=== PATIENT | female | born 1985 | race Hispanic/Latino ===

== ENCOUNTER 2021-04-04 20:51 | Emergency (ER) | payer MEDICAID, OTHER ==
[~2021-04-04] VITALS: Ht 170.2 cm; Wt 106.6 kg
[2021-04-04 20:57] VITALS: BP 105/66
[2021-04-04] MEDS: 0.9%NACL 1000ML 1,000 ML IV ONE (21:31)
[2021-04-04] MEDS: INSULIN HUMULIN R 100 UNIT/ML 3ML SQ ONE (21:31)
[2021-04-04 21:35] LABS: BASOPHILS % (AUTO) 0.3 % (0.0-5.0); EOSINOPHILS % (AUTO) 2.3 % (0.0-8.0); HEMATOCRIT 42.3 % (36-48); LYMPHOCYTES % (AUTO) 24.8 % (21.0-51.0); MEAN CORPUSCULAR HEMOGLOBIN 31.5 pg (27.0-33.0); MEAN CORPUSCULAR HGB CONC 34.5 g/dL (32.0-36.0); MEAN CORPUSCULAR VOLUME 91.2 fL (79-99); MONOCYTES % (AUTO) 6.5 % (3.0-13.0); NEUTROPHILS % (AUTO) 65.7 % (40.0-77.0); PLATELET COUNT (AUTO) 260 K/uL (130-400); RED BLOOD CELL COUNT(AUTO) 4.64 MIL/uL (4.00-5.50); RED CELL DISTRIBUTION WIDTH 11.9 % (11.0-15.5); WHITE BLOOD COUNT (AUTO) 11.6 K/uL (4.8-10.8)
[2021-04-04 21:37] LABS: APPEARANCE,URINE Clear (CLEAR); BILIRUBIN,URINE Negative (NEGATIVE); COLOR,URINE Yellow (YELLOW); GLUCOSE, URINE (UA) >=1000 mg/dL (NEGATIVE); KETONES,URINE Negative (NEGATIVE); LEUKOCYTE ESTERASE ,URINE Negative (NEGATIVE); NITRATE,URINE Negative (NEGATIVE); OCCULT BLOOD,URINE Negative (NEGATIVE); PH,URINE 5.5 (5.0-8.0); PROTEIN,URINE Negative (NEGATIVE); UROBILINOGEN,URINE 0.2 mg/dL (0.2-1.0)
[2021-04-04 21:41] VITALS: BP 97/65
[2021-04-04 21:42] LABS: HCG,QUAL RESULT NEGATIVE (NEGATIVE)
[2021-04-04 21:44] LABS: BACTERIA,URINE Rare /HPF (None Seen); RBC,URINE 0-1 /HPF (0-1); SQUAMOUS EPITHELIAL CELL,UR Few /HPF (0-2); WBC,URINE 0-1 /HPF (0-1)
[2021-04-04 21:49] LABS: ALBUMIN 2.7 g/dL (3.5-5.0); BILIRUBIN,TOTAL 0.2 mg/dL (0.2-1.0); CREATININE 0.8 mg/dL (0.5-1.5); POTASSIUM 4.4 mmol/L (3.5-5.1); TOTAL PROTEIN, SERUM 6.5 g/dL (6.0-8.3)
[2021-04-04] MEDS ORDERED: METF-444 PO (23:08)
[2021-04-04 23:58] VITALS: BP 110/70
== END 2021-04-05 00:18 | disposition home or self-care (01) ==
LOC: EDH 20:51
DX: E11.65 Type 2 diabetes mellitus with hyperglycemia (principal); E66.9 Obesity, unspecified; R42 Dizziness and giddiness; R03.0 Elevated blood-pressure reading, without diagnosis of hypertension; Z79.4 Long term (current) use of insulin; Z68.36 Body mass index [BMI] 36.0-36.9, adult
CPT/HCPCS: 36415; 80053; 81001; 81025; 82010; 82948 ×2; 85025; 96360; 96361; 96372; 99283; J1815; J7030

== ENCOUNTER 2021-07-30 10:53 | Emergency (ER) | payer MEDICAID, OTHER ==
[~2021-07-30] VITALS: Ht 170.2 cm; Wt 108.9 kg
[~2021-07-30 10:53] MED LIST: METF-444 PO
[2021-07-30 10:54] VITALS: BP 158/96
[2021-07-30] MEDS ORDERED: OSEL75 PO (12:10)
[2021-07-30] MEDS ORDERED: D-ME1POW16 PO (12:10)
[2021-07-30] MEDS ORDERED: GUAIFENESIN-CODEINE 5 ML SYRUP PO ONE (12:30)
[2021-07-30] MEDS ORDERED: OSELTAMIVIR PHOSPHATE 75 MG CAP PO SCH (12:30)
[2021-07-30] MEDS ORDERED: IVER3TAB PO (13:12)
== END 2021-07-30 13:54 | disposition home or self-care (01) ==
LOC: EDH 10:53
DX: U07.1 COVID-19 (principal); J10.1 Influenza due to other identified influenza virus with other respiratory manifestations; E78.00 Pure hypercholesterolemia, unspecified; E66.9 Obesity, unspecified; E11.9 Type 2 diabetes mellitus without complications; Z79.84 Long term (current) use of oral hypoglycemic drugs; Z68.37 Body mass index [BMI] 37.0-37.9, adult
CPT/HCPCS: 87635; 87804 ×2; 99283; C9803

== ENCOUNTER 2021-11-11 17:46 | Emergency (ER) | payer OTHER, SELFPAY ==
[~2021-11-11] VITALS: Ht 165.1 cm; Wt 117.9 kg
[~2021-11-11 17:46] MED LIST changes: +D-ME1POW16 PO; +IVER3TAB PO; +OSEL75 PO
[2021-11-11 17:48] VITALS: BP 114/57
[2021-11-11] MEDS ORDERED: ORPHENADRINE CITRATE 30 MG/ML ML IM ONE (18:30)
[2021-11-11] MEDS ORDERED: KETOROLAC 30MG VIAL (30MG/ML) IM ONE (18:30)
[2021-11-11] MEDS ORDERED: CYCL10TA16 PO (19:26)
[2021-11-11] MEDS ORDERED: NAPR500T6 PO (19:26)
== END 2021-11-11 19:38 | disposition home or self-care (01) ==
LOC: EDH 17:46
DX: M54.50 Low back pain, unspecified (principal); E11.9 Type 2 diabetes mellitus without complications; E78.00 Pure hypercholesterolemia, unspecified
CPT/HCPCS: 72131; 81025; 96372 ×2; 99284; J1885; J2360